=== PATIENT | male | born 1950 | race Caucasian/White ===

== ENCOUNTER 2017-12-19 08:47 | Outpatient (REF) | payer MEDICARE, BC, SELFPAY ==
[2017-12-19 22:40] LABS: Anion Gap 9.5 mmol/L (3-11); BUN 17 mg/dL (7-18); CO2 26.5 mmol/L (21.0-32.0); CREATININE 1.03 mg/dL (0.70-1.30); Calcium 8.5 mg/dL (8.5-10.1); Chloride 104 mmol/L (98-107); Cholesterol 240 mg/dL (50-200); Glucose 92 mg/dL (70-100); HDL Cholesterol 55 mg/dL (40-60); LDL CHOLESTEROL 173 mg/dL (<100); Potassium 4.2 mmol/L (3.5-5.1); Sodium 140 mmol/L (136-145); Triglyceride 78 mg/dL (30-150)
== END 2017-12-19 08:48 ==
LOC: NCHCN 08:47
PROVIDERS: Visit Provider Internal Medicine
DX: Z00.00 Encounter for general adult medical examination without abnormal findings (principal); I10 Essential (primary) hypertension; E04.1 Nontoxic single thyroid nodule; R97.20 Elevated prostate specific antigen [PSA]; N40.0 Benign prostatic hyperplasia without lower urinary tract symptoms; R05 Cough
CPT/HCPCS: 80048; 80061; 83721

== ENCOUNTER 2018-02-14 22:15 | Outpatient (REF) | payer MEDICARE, BC, SELFPAY ==
[2018-02-14 22:52] LABS: Cholesterol 175 mg/dL (50-200); HDL Cholesterol 59 mg/dL (40-60); LDL CHOLESTEROL 112 mg/dL (<100); Triglyceride 60 mg/dL (30-150)
== END 2018-02-14 22:35 ==
LOC: NCHCN 22:15
PROVIDERS: Visit Provider Internal Medicine
DX: I10 Essential (primary) hypertension (principal); E78.5 Hyperlipidemia, unspecified
CPT/HCPCS: 80061; 83721

== ENCOUNTER 2018-09-21 10:32 | Outpatient (REF) | payer MEDICARE, BC, SELFPAY ==
[2018-09-21 21:07] LABS: Anion Gap 9.9 mmol/L (3-11); BUN 22 mg/dL (7-18); CO2 27.1 mmol/L (21.0-32.0); CREATININE 0.88 mg/dL (0.70-1.30); Calcium 9.1 mg/dL (8.5-10.1); Chloride 102 mmol/L (98-107); Cholesterol 172 mg/dL (50-200); Glucose 97 mg/dL (70-100); HDL Cholesterol 51 mg/dL (40-60); LDL CHOLESTEROL 98 mg/dL (<100); Potassium 4.1 mmol/L (3.5-5.1); Sodium 139 mmol/L (136-145); Triglyceride 181 mg/dL (30-150)
== END 2018-09-21 10:52 ==
LOC: NCHCN 10:32
PROVIDERS: Visit Provider Internal Medicine
DX: E78.5 Hyperlipidemia, unspecified (principal); I10 Essential (primary) hypertension
CPT/HCPCS: 80048; 80061; 83721

== ENCOUNTER 2019-04-08 13:51 | Outpatient (REF) | payer MEDICARE, BC, SELFPAY ==
[2019-04-10 10:08] LABS: Lyme Ab w Rflx to Lyme Confirm Negative (Negative)
== END 2019-04-08 14:11 ==
LOC: NCHCN 13:51
PROVIDERS: Visit Provider Internal Medicine
DX: R21 Rash and other nonspecific skin eruption (principal)
CPT/HCPCS: 86618

== ENCOUNTER 2019-11-18 21:11 | Outpatient (REF) | payer MEDICARE, BC, SELFPAY ==
[2019-11-18 22:03] LABS: HCT 38.2 % (40.0-50.0); HGB 12.7 g/dL (13.5-17.5); Mean Corp. HGB Concentration 33.2 g/dL (32.0-36.0); Mean Corpuscular Hemoglobin 28.7 pg (27.0-33.0); Mean Corpuscular Volume 86.2 fL (80-95); Mean Platelet Volume 9.9 fL (8.0-11.0); Platelet Count 201 x1000/uL (130-400); RBC 4.43 m/cumm (4.50-6.00); RBC Distribution Width 12.8 % (11.8-14.1); White Blood Cell Count 4.17 k/cumm (4.4-10.8)
[2019-11-18 22:12] LABS: Ferritin 127 ng/mL (26-388)
== END 2019-11-18 21:31 ==
LOC: NCHCN 21:11
PROVIDERS: Visit Provider Internal Medicine
DX: E61.1 Iron deficiency (principal)
CPT/HCPCS: 85027; 82728

== ENCOUNTER 2020-03-10 19:33 | Outpatient (REF) | payer MEDICARE, BC, SELFPAY ==
[2020-03-10 21:14] LABS: ALT 105 U/L (16-63); AST 34 U/L (15-37); Albumin 3.6 g/dL (3.4-5.0); Alkaline Phosphatase 155 U/L (46-116); Anion Gap 5.5 mmol/L (3-11); BUN 22 mg/dL (7-18); Bilirubin, Total 0.7 mg/dL (0.2-1.0); CO2 31.5 mmol/L (21.0-32.0); CREATININE 0.95 mg/dL (0.70-1.30); Calcium 8.8 mg/dL (8.5-10.1); Calculated LDL 93 mg/dL (<100); Chloride 101 mmol/L (98-107); Cholesterol 164 mg/dL (<200); Glucose 104 mg/dL (74-106); HDL Cholesterol 49 mg/dL (40-60); Potassium 4.1 mmol/L (3.5-5.1); Sodium 138 mmol/L (136-145); Total Protein 6.7 g/dL (6.4-8.2); Triglyceride 114 mg/dL (<150)
== END 2020-03-10 19:53 ==
LOC: NCHCN 19:33
PROVIDERS: Visit Provider Internal Medicine
DX: I10 Essential (primary) hypertension (principal); E78.5 Hyperlipidemia, unspecified
CPT/HCPCS: 80053; 80061

== ENCOUNTER 2021-04-05 09:14 | Outpatient (REF) | payer MEDICARE, BC, SELFPAY ==
[2021-04-05 16:18] LABS: Calculated LDL 64 mg/dL (<100); Cholesterol 140 mg/dL (<200); HDL Cholesterol 63 mg/dL (40-60); Triglyceride 67 mg/dL (<150)
== END 2021-04-05 09:15 | disposition home or self-care (01) ==
LOC: NCHCN 09:14
PROVIDERS: Visit Provider Internal Medicine
DX: E78.5 Hyperlipidemia, unspecified (principal)
CPT/HCPCS: 80061

== ENCOUNTER 2021-09-08 17:53 | Outpatient (REF) | payer MEDICARE, SELFPAY ==
[2021-09-08 15:33] LABS: TSH 2.73 uIU/mL (0.36-3.74)
== END 2021-09-08 17:54 | disposition home or self-care (01) ==
LOC: NCHCN 17:53
PROVIDERS: Visit Provider Internal Medicine
DX: E04.1 Nontoxic single thyroid nodule (principal)
CPT/HCPCS: 84443

== ENCOUNTER 2022-05-20 13:20 | Outpatient (REF) | payer MEDICARE, SELFPAY ==
[2022-05-20 16:46] LABS: Anion Gap 8.5 mmol/L (3-11); BUN 18 mg/dL (7-18); CO2 25.5 mmol/L (21.0-32.0); Calcium 8.9 mg/dL (8.5-10.1); Chloride 105 mmol/L (98-107); Estimated GFR 80.47 (mL/min/1.73m2); Glucose 101 mg/dL (74-106); Potassium 4.4 mmol/L (3.5-5.1); Sodium 139 mmol/L (136-145)
== END 2022-05-20 13:21 | disposition home or self-care (01) ==
LOC: NCHCN 13:20
PROVIDERS: Visit Provider Internal Medicine
DX: I10 Essential (primary) hypertension (principal)
CPT/HCPCS: 80048

== ENCOUNTER 2022-05-23 15:53 | Outpatient (REF) | payer MEDICARE, SELFPAY ==
[2022-05-23 21:31] LABS: ALT 24 U/L (16-63); AST 25 U/L (15-37); Albumin 3.9 g/dL (3.4-5.0); Alkaline Phosphatase 119 U/L (46-116); Bilirubin, Direct 0.1 mg/dL (0.0-0.2); Bilirubin, Total 0.6 mg/dL (0.2-1.0); TSH 2.01 uIU/mL (0.36-3.74); Total Protein 7.7 g/dL (6.4-8.2)
[2022-05-23 22:13] LABS: Vitamin B12 387 pg/mL (193-986)
== END 2022-05-23 15:54 | disposition home or self-care (01) ==
LOC: NCHCN 15:53
PROVIDERS: Visit Provider Internal Medicine
DX: R19.7 Diarrhea, unspecified (principal); R41.3 Other amnesia
CPT/HCPCS: 80076; 85027; 82607; 84443

== ENCOUNTER 2022-05-25 09:38 | Outpatient (REF) | payer MEDICARE, SELFPAY ==
[2022-05-25 14:03] LABS: HCT 45.6 % (40.0-50.0); HGB 14.7 g/dL (13.5-17.5); MCH 28.8 pg (27.0-33.0); MCHC 32.2 % (32.0-36.0); MCV 89 fL (80-95); MPV 9.8 fL (8.0-11.0); Platelet Count 252 10^3/uL (130-400); RBC 5.11 10^6/uL (4.36-5.78); RDW 12.4 % (11.8-14.1); RDW-SD 40.8 fL; WBC 4.83 10^3/uL (4.4-10.8)
== END 2022-05-25 09:39 | disposition home or self-care (01) ==
LOC: NCHCN 09:38
PROVIDERS: Visit Provider Internal Medicine
DX: R19.7 Diarrhea, unspecified (principal); R41.3 Other amnesia
CPT/HCPCS: 85027

== ENCOUNTER 2022-06-29 15:08 | Outpatient (REF) | payer MEDICARE, SELFPAY ==
[2022-06-29 21:29] LABS: Calculated LDL 34 mg/dL (<100); Cholesterol 125 mg/dL (<200); HDL Cholesterol 67 mg/dL (40-60); Triglyceride 122 mg/dL (<150)
== END 2022-06-29 15:09 | disposition home or self-care (01) ==
LOC: NCHCN 15:08
PROVIDERS: Visit Provider Internal Medicine
DX: E78.5 Hyperlipidemia, unspecified (principal); R10.9 Unspecified abdominal pain
CPT/HCPCS: 80061

== ENCOUNTER 2023-08-09 09:36 | Outpatient (REF) | payer MEDICARE, SELFPAY ==
[2023-08-09 15:45] LABS: Vitamin D 25 Total 12.7 ng/mL (30-100)
== END 2023-08-09 09:37 | disposition home or self-care (01) ==
LOC: NCHCN 09:36
PROVIDERS: Visit Provider Internal Medicine
DX: E83.51 Hypocalcemia (principal)
CPT/HCPCS: 82306

== ENCOUNTER 2023-08-18 18:36 | Outpatient (REF) | payer MEDICARE, SELFPAY ==
[2023-08-18 21:27] LABS: ALT 21 U/L (16-63); AST 19 U/L (15-37); Albumin 3.6 g/dL (3.4-5.0); Alkaline Phosphatase 118 U/L (46-116); Anion Gap 6.2 mmol/L (3-11); BUN 17 mg/dL (7-18); Bilirubin, Total 0.8 mg/dL (0.2-1.0); CO2 28.8 mmol/L (21.0-32.0); Calcium 8.8 mg/dL (8.5-10.1); Chloride 104 mmol/L (98-107); Estimated GFR 79.97 (mL/min/1.73m2); Glucose 106 mg/dL (74-106); Potassium 4.2 mmol/L (3.5-5.1); Sodium 139 mmol/L (136-145); Total Protein 7.2 g/dL (6.4-8.2)
== END 2023-08-18 18:37 | disposition home or self-care (01) ==
LOC: NCHCN 18:36
PROVIDERS: Visit Provider Internal Medicine
DX: R25.2 Cramp and spasm (principal)
CPT/HCPCS: 80053; 83735

== ENCOUNTER 2023-10-30 15:09 | Outpatient (REF) | payer MEDICARE, SELFPAY ==
[2023-10-30 22:33] LABS: Vitamin D 25 Total 43.2 ng/mL (30-100)
== END 2023-10-30 15:10 | disposition home or self-care (01) ==
LOC: NCHCN 15:09
PROVIDERS: Visit Provider Internal Medicine
DX: E55.9 Vitamin D deficiency, unspecified (principal)
CPT/HCPCS: 82306

== ENCOUNTER 2024-02-05 17:22 | Outpatient (REF) | payer MEDICARE, SELFPAY ==
[2024-02-05 14:43] LABS: Abs Immature Grans 0.02 10^3/uL (0.0-0.06); Absolute Basophil Count 0.04 10^3/uL (0.0-0.2); Absolute Eosinophil Count 0.28 10^3/uL (0.0-0.7); Absolute Lymphocyte Count 1.47 10^3/uL (1.2-3.4); Absolute Monocyte Count 0.71 10^3/uL (0.1-0.8); Absolute Neutrophil Count 4.22 10^3/uL (1.2-6.7); Basophils % 0.6 %; Eosinophils % 4.2 %; HCT 44.4 % (40.0-50.0); HGB 14.4 g/dL (13.5-17.5); Immature Grans % 0.3 %; Lymphocytes % 21.8 %; MCH 28.5 pg (27.0-33.0); MCHC 32.4 % (32.0-36.0); MCV 88 fL (80-95); MPV 10.2 fL (8.0-11.0); Monocytes % 10.5 %; Neutrophils % 62.6 %; Platelet Count 221 10^3/uL (130-400); RBC 5.05 10^6/uL (4.36-5.78); RDW 12.9 % (11.8-14.1); RDW-SD 41.3 fL; WBC 6.74 10^3/uL (4.4-10.8)
[2024-02-05 16:50] LABS: Calculated LDL 21 mg/dL (<100); Cholesterol 127 mg/dL (<200); HDL Cholesterol 59 mg/dL (40-60); Triglyceride 239 mg/dL (<150)
== END 2024-02-05 17:23 | disposition home or self-care (01) ==
LOC: NCHCN 17:22
PROVIDERS: PCP Internal Medicine; Visit Provider Internal Medicine
DX: E78.5 Hyperlipidemia, unspecified (principal); E55.9 Vitamin D deficiency, unspecified; D72.819 Decreased white blood cell count, unspecified
CPT/HCPCS: 80061; 82306; 85025

== ENCOUNTER 2024-08-12 17:13 | Outpatient (REF) | payer MEDICARE, SELFPAY ==
[2024-08-12 22:05] LABS: Vitamin D 25 Total 36 ng/mL (30-100)
== END 2024-08-12 17:14 | disposition home or self-care (01) ==
LOC: NCHCN 17:13
PROVIDERS: Visit Provider Internal Medicine
DX: E55.9 Vitamin D deficiency, unspecified (principal)
CPT/HCPCS: 82306

== ENCOUNTER 2024-09-17 16:40 | Outpatient (REF) | payer MEDICARE, SELFPAY ==
[2024-09-17 21:53] LABS: Anion Gap 7.4 mmol/L (3-11); BUN 19 mg/dL (7-18); CO2 28.6 mmol/L (21.0-32.0); Calcium 8.9 mg/dL (8.5-10.1); Chloride 102 mmol/L (98-107); Estimated GFR 79.47 (mL/min/1.73m2); Glucose 111 mg/dL (74-106); Potassium 4.3 mmol/L (3.5-5.1); Sodium 138 mmol/L (136-145)
== END 2024-09-17 16:41 | disposition home or self-care (01) ==
LOC: NCHCN 16:40
PROVIDERS: PCP Internal Medicine; Visit Provider Nurse Practitioner Family
DX: U07.1 COVID-19 (principal)
CPT/HCPCS: 80048

== ENCOUNTER 2025-02-10 17:17 | Outpatient (REF) | payer MEDICARE, SELFPAY ==
[2025-02-10 20:08] LABS: ALT 25 U/L (16-63); AST 28 U/L (15-37); Albumin 3.8 g/dL (3.4-5.0); Alkaline Phosphatase 113 U/L (46-116); Anion Gap 9.8 mmol/L (3-11); BUN 23 mg/dL (7-18); Bilirubin, Total 1.0 mg/dL (0.2-1.0); CO2 27.2 mmol/L (21.0-32.0); Calcium 8.5 mg/dL (8.5-10.1); Calculated LDL 64 mg/dL (<100); Chloride 103 mmol/L (98-107); Cholesterol 142 mg/dL (<200); Estimated GFR 78.98 (mL/min/1.73m2); Glucose 96 mg/dL (74-106); HDL Cholesterol 68 mg/dL (>or=40); Potassium 4.6 mmol/L (3.5-5.1); Sodium 140 mmol/L (136-145); TSH (W/Ref FT4) 2.39 uIU/mL (0.36-3.74); Total Protein 7.4 g/dL (6.4-8.2); Triglyceride 52 mg/dL (<150)
== END 2025-02-10 17:18 | disposition home or self-care (01) ==
LOC: NCHCN 17:17
PROVIDERS: PCP Internal Medicine; Visit Provider Internal Medicine
DX: E78.5 Hyperlipidemia, unspecified (principal); E04.1 Nontoxic single thyroid nodule
CPT/HCPCS: 80053; 80061; 85027; 84443

== ENCOUNTER 2025-02-18 15:22 | Outpatient (REF) | payer MEDICARE, SELFPAY ==
[2025-02-17 21:44] LABS: HCT 42.8 % (40.0-50.0); HGB 14.0 g/dL (13.5-17.5); MCH 27.8 pg (27.0-33.0); MCHC 32.7 % (32.0-36.0); MCV 85 fL (80-95); MPV 10.4 fL (8.0-11.0); Platelet Count 249 10^3/uL (130-400); RBC 5.03 10^6/uL (4.36-5.78); RDW 13.0 % (11.8-14.1); RDW-SD 40.1 fL; WBC 6.05 10^3/uL (4.4-10.8)
[2025-02-17 22:30] LABS: COMMENT (LAB VIEW ONLY) 152.27 mg/dL; Microalb ug/mg Crea 6.8 ug/mg Cr
== END 2025-02-18 15:23 | disposition home or self-care (01) ==
LOC: NCHCN 15:22
PROVIDERS: PCP Internal Medicine; Visit Provider Internal Medicine
DX: I10 Essential (primary) hypertension (principal)
CPT/HCPCS: 85027; 82043; 82570